=== PATIENT | male | born 2000 | race African-American/Black ===

== ENCOUNTER 2023-03-08 07:42 | Emergency (ER) | payer MEDICAID, SELFPAY ==
[2023-03-08 08:57] LABS: SARS-CoV-2 NAA Rapid Test Not Detected (NotDetected)
== END 2023-03-08 09:16 | disposition home or self-care (01) ==
LOC: ERS 07:42
DX: J06.9 Acute upper respiratory infection, unspecified (principal); Z20.822 Contact with and (suspected) exposure to COVID-19
CPT/HCPCS: 71045; 99283

== ENCOUNTER 2023-09-29 08:19 | Emergency (ER) | payer SELFPAY | END 2023-09-29 09:12 | disposition home or self-care (01) | LOC: ERS 08:19 | DX: R07.89 Other chest pain (principal); R05.9 Cough, unspecified | CPT/HCPCS: 71045; 93005 ==